=== PATIENT | female | born 1960 | race Caucasian/White ===

== ENCOUNTER 2022-02-12 08:48 | Emergency (ER) | payer OTHER ==
[~2022-02-12] VITALS: Ht 165.1 cm; Wt 77.0 kg
[2022-02-12 08:49] VITALS: BP 165/100
[2022-02-12] MEDS ORDERED: HYDROCODONE/ACETAMINOPHEN 5/325MG TABLET PO NR (09:15)
== END 2022-02-12 12:14 | disposition home or self-care (01) ==
LOC: ER 08:48
DX: R25.2 Cramp and spasm (principal); M71.22 Synovial cyst of popliteal space [Baker], left knee; E11.9 Type 2 diabetes mellitus without complications
CPT/HCPCS: 73560; 93971; 99284